=== PATIENT | female | born 1970 ===

== ENCOUNTER 2021-11-19 05:42 | Day surgery (SDC) | payer OTHER ==
[~2021-11-19] VITALS: Ht 152.4 cm; Wt 49.9 kg
[~2021-11-19 05:42] MED LIST: JARDIANCE25 MG PO; SYNTHROID75 MCG PO
== END 2021-11-19 15:50 | disposition home or self-care (01) ==
LOC: CIR.AMB 05:42
PROVIDERS: ATTEND Specialist
DX: K80.10 Calculus of gallbladder with chronic cholecystitis without obstruction (principal); K82.8 Other specified diseases of gallbladder; Z91.013 Allergy to seafood; E11.9 Type 2 diabetes mellitus without complications; E03.9 Hypothyroidism, unspecified; K21.9 Gastro-esophageal reflux disease without esophagitis

== ENCOUNTER 2021-12-04 12:53 | Outpatient (CLI) | payer OTHER | END 2021-12-04 12:54 | disposition home or self-care (01) | LOC: RAD 12:53 | PROVIDERS: ATTEND Specialist | DX: J98.11 Atelectasis (principal) ==